=== PATIENT | male | born 1950 | race Caucasian/White ===

== ENCOUNTER 2022-10-15 06:13 | Emergency (ER) | payer MEDICARE ==
[2022-10-15] MEDS ORDERED: NEXIUM40 MG PO (06:29)
[2022-10-15] MEDS ORDERED: MELATONIN10 M4 PO (06:30)
[2022-10-15] MEDS ORDERED: AMOX-CLAV 875-1 EACH PO (07:23)
== END 2022-10-15 07:57 | disposition home or self-care (01) ==
LOC: ED 06:13
DX: J01.90 Acute sinusitis, unspecified (principal); Z20.822 Contact with and (suspected) exposure to COVID-19; J06.9 Acute upper respiratory infection, unspecified; Z79.899 Other long term (current) drug therapy